=== PATIENT | male | born 1990 | race Caucasian/White ===

== ENCOUNTER 2017-02-09 14:30 | Emergency (ER) | payer OTHER ==
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
[~2017-02-09 14:30] MED LIST: DOXYCYCLINE HY100 M1 PO; IBUPROFEN PO; MOTRIN PO; MOTRIN600 M2 PO; PERCOCET5/325 PO; ROBITUSSIN A-C-S1 ML PO; ROBITUSSIN PO; ULTRAM PO; ZOFRAN ODT4 MG PO
[2017-02-09] MEDS ORDERED: NO MEDICATIONS (14:37)
== END 2017-02-09 16:10 | disposition home or self-care (01) ==
LOC: SED 14:30
DX: M25.571 Pain in right ankle and joints of right foot (principal)
CPT/HCPCS: 29515; 73610; 99283